=== PATIENT | male | born 1995 | race Caucasian/White ===

== ENCOUNTER 2024-07-14 07:26 | Day surgery (SDC) | payer OTHER ==
[2024-07-11 14:16] VITALS: BP 136/83
[~2024-07-14] VITALS: Ht 170.2 cm; Wt 74.8 kg
[2024-07-14] MEDS ORDERED: CEFAZOLIN SODIUM 1,000 MG VIAL ONE (09:25)
[2024-07-14] MEDS ORDERED: ISOPROPYL ALCOHOL 30 ML OUNCE TOP ONE (10:15)
[2024-07-14] MEDS ORDERED: SUGAMMADEX SODIUM 200 MG/2 ML VIAL IV ONE (11:27)
== END 2024-07-14 17:15 | disposition home or self-care (01) ==
LOC: CIR.AMB 07:26
PROVIDERS: ATTEND Orthopaedic Surgery
DX: S62.326A Displaced fracture of shaft of fifth metacarpal bone, right hand, initial encounter for closed fracture (principal); S62.324A Displaced fracture of shaft of fourth metacarpal bone, right hand, initial encounter for closed fracture